=== PATIENT | male | born 1980 | race Caucasian/White ===

== ENCOUNTER 2021-06-07 08:52 | Emergency (ER) | payer MEDICAID, OTHER ==
[2021-06-07] MEDS ORDERED: Ondansetron 4 MG/2 ML SDV IVPUSH ONE (08:55)
[2021-06-07] MEDS ORDERED: Sodium Chloride 0.9% 10 ML Syringe FLUSH PRN (08:55)
[2021-06-07] MEDS ORDERED: Morphine 4 MG/ML VIAL IVPUSH ONE (08:55)
[2021-06-07] MEDS ORDERED: Aspirin 81 MG Tab.Chew PO ONE (09:01)
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
[2021-06-07] MEDS: Sodium Chloride 0.9% 2.5 ML Syringe FLUSH PRN ×2 (09:21→09:22)
--- NOTE | 2021-06-07 09:21 | CR ---
Indication: Chest pain Technique: Portable chest Comparison: No comparison Findings: Normal cardiac mediastinal silhouette. Lungs are clear. No effusion or pneumothorax. Dictated by Bonnie Foreman MD @ 06/07/2021 9:19:40 AM (Electronically Signed)
[2021-06-07 09:32] LABS: BLOOD UREA NITROGEN,BUN 13 mg/dL (7.0-18.0); CHLORIDE,CL 101 mmol/L (98-107); GLUCOSE RANDOM 93 mg/dL (74-106); POTASSIUM,K 3.9 mmol/L (3.5-5.1); SODIUM,NA 138 mmol/L (136-148)
== END 2021-06-07 10:53 | disposition home or self-care (01) ==
LOC: MW.ED 08:52
DX: S29.011A Strain of muscle and tendon of front wall of thorax, initial encounter (principal); Z79.899 Other long term (current) drug therapy; Z90.49 Acquired absence of other specified parts of digestive tract; X58.XXXA Exposure to other specified factors, initial encounter
CPT/HCPCS: 36415; 71045; 80053; 84484; 85025; 93005; 96374; 96375; 99285; A9270; J2270; J2405; J3360